=== PATIENT | female | born 1945 | race Caucasian/White ===

== ENCOUNTER 2017-02-19 09:16 | Observation (INO) | payer MEDICARE, OTHER ==
[2017-02-10 16:41] LABS: BASOPHILS 0.2 %; BASOPHILS ABSOLUTE 0.01 10/3/uL (0.0-0.16); EOSINOPHILS 1.8 %; EOSINOPHILS ABSOLUTE 0.11 10/3/uL (0.0-0.53); HEMATOCRIT 40.9 % (36.0-48.0); HEMOGLOBIN 13.7 g/dL (12.0-16.0); LYMPHOCYTES ABSOLUTE 1.62 10/3/uL (0.67-4.30); MEAN CORPUS HGB CONC 33.5 g/dL (32.0-36.0); MEAN CORPUSCULAR HEMOGLOB 28.1 pg (26.0-34.0); MEAN PLATELET VOLUME 10.9 fL (9.2-13.0); MONOCYTES 6.2 %; MONOCYTES ABSOLUTE 0.37 10/3/uL (0.21-1.20); NEUTROPHILS 64.8 %; PLATELET COUNT 262 10/3/uL (150-400); RED CELL COUNT 4.87 10/6/uL (4.0-5.6)
[2017-02-10 16:49] LABS: MANUAL DIFF NO %; RBC DISTRIBUTION WIDTH 20.1 % (12.0-16.0)
[2017-02-10 16:53] LABS: A/G RATIO 0.9 (0.7-1.9); ALBUMIN 3.4 G/DL (3.5-5.0); ALKALINE PHOSPHATASE 102 U/L (45-117); BUN (BLOOD UREA NITROGEN) 27 MG/DL (6-23); CALCIUM, SERUM 9.4 MG/DL (8.5-10.4); CHLORIDE, SERUM 101 MMOL/L (96-112); CO2 (CARBON DIOXIDE) 25 MMOL/L (24-34); CREATININE 0.94 MG/DL (0.55-1.02); GFR AFRICAN AMERICAN 72 ML/MIN (>=60); GFR NON AFRICAN AMERICAN 62 ML/MIN (>=60); GLOBULIN 3.8 G/DL (2.5-4.1); GLUCOSE, SERUM 90 MG/DL (60-99); POTASSIUM, SERUM 3.5 MMOL/L (3.5-5.3); SGOT(AST) 13 U/L (5-40); SGPT(ALT) 18 U/L (5-65); SODIUM, SERUM 135 MMOL/L (135-148); TOTAL BILIRUBIN 0.4 MG/DL (0-1.2); TOTAL PROTEIN 7.2 G/DL (6.0-8.5)
--- NOTE | ~2017-02-19 | OP ---
Record Of Operation [facility] [address] [place]. [address] NAME: DEREK THOMAS : 49 STATUS : ADM IN PAT#: [id number] AGE: 71 ADM/REG DATE : 02/19/17 MR#: [id number] REPORT SERV DATE: 02/20/17 DICTATED BY: FERNANDO TRENT DATE: 02/19/17 REPORT STATUS : Draft TRANSCRIBED BY: MODL DATE: 02/19/17 DATE OF PROCEDURE: 02/19/2017 PREOPERATIVE DIAGNOSES: 1. Hiatal hernia. 2. Gastroesophageal reflux disease. POSTOPERATIVE DIAGNOSES: 1. Type 3 hiatal hernia. 2. Gastroesophageal reflux disease. PROCEDURE: Laparoscopic repair of hiatal hernia with Stuart fundoplication. ATTENDING SURGEON: Fernando Trent M.D. CHIEF SURGEON: Morelia Bahena MD ANESTHESIA: General. ESTIMATED BLOOD LOSS: Minimal. COMPLICATIONS: None. SPECIMEN: None. DESCRIPTION OF PROCEDURE: The patient was taken to the operating room, placed on the operating table in supine position. After induction of general anesthesia, time-out procedure was performed to ensure proper procedure and patient identification. The patient was repositioned in modified lithotomy position. The patient's abdomen was then prepped and draped in the usual sterile fashion. A 10 mm skin incision was created just superior and to the left side of the patient's abdomen. A 10 mm trocar was then advanced into the abdomen using Optiview technique. Then abdomen inflated. Laparoscope was inserted. The abdomen inspected. At this point, two additional 5 mm trocars were placed along the left costal margin. One additional 10 mm trocar was placed on the medial aspect of the right costal margin and an additional 5 mm trocar was placed along the lateral aspect of the left costal margin. A liver retractor was introduced through the lateral port site and the liver retracted. The patient was noted to have a large type 3 hiatal hernia. The stomach was reduced from the chest and held in traction. The pars flaccida was then opened using a Harmonic device. Once this was opened, the right foreign was identified and cleared from adjacent tissues using the LigaSure device. Dissection was continued along the anterior aspect of the esophagus. Mediastinal attachments to the esophagus were divided using the LigaSure device. Both vagus nerves were identified and protected from harm. We then directed our attention to the left side of the stomach. The stomach was elevated. The short gastric vessels were divided using the LigaSure, and this dissection was extended up to the left foreign. Once the left foreign was adequately exposed, once again attachments to this portion of the esophagus were divided using the LigaSure as well. We then elevated the Record Of Operation [facility] [address] [place]. [address] NAME: DEREK THOMAS : 49 STATUS : ADM IN PAT#: [id number] AGE: 71 ADM/REG DATE : 02/19/17 MR#: [id number] REPORT SERV DATE: 02/20/17 DICTATED BY: FERNANDO TRENT DATE: 02/19/17 REPORT STATUS : Draft TRANSCRIBED BY: EMELYN DATE: 02/19/17 esophagus. A window was created posterior to the esophagus at the level of the foreign. A Hugoton drain was passed around the esophagus and used for traction. All attachments to the mediastinum causing any traction on the esophagus were dissected using combination of blunt dissection and the LigaSure until adequate intraabdominal esophageal length was obtained in a tension-free fashion. We then directed our attention to repair of the hiatus. The right and left foreign were reapproximated with three interrupted figure-of-8 sutures of 0 Ethibond with good tension-free reapproximation. We then proceeded with creation of the fundoplication. The fundus was passed posterior to the esophagus and advanced through. We assured there was no tension or evidence of twisting of the stomach. The apex of the fundus was identified. Now, the first suture of 0 Ethibond was placed from the apex of the fundus to the esophagus to the lateral aspect of the stomach. This suture was secured and was tension free. Two additional 0 Ethibond sutures were placed from the fundus to the adjacent stomach to create the wrap. The René drain was then removed. Once again, the hiatal repair fundoplication was examined. Hemostasis was assured. All secondary trocars were then removed under direct visualization. The periumbilical trocar was removed and the abdomen allowed to collapse. The skin incisions were reapproximated with interrupted inverted 3-0 Monocryl and sterile dressings were applied. The patient tolerated the procedure well, was taken to PACU in stable condition. DICTATED BY: Morelia Bahena MD JR/MODL Fernando Trent M.D. / [id number] CC: Fernando Trent M.D.
[~2017-02-19 09:16] MED LIST: ASAB PO; ATEN50 PO; BEN25 PO; BREO ELLIPTA INH; ELIQUIS 5 MG TAB5 MG PO; FISH-EPA1000 MG PO; HYDROCHLOROT25 MG PO; HYDROCHLOROT50 MG PO; IMDUR30 PO; LOTE10 PO; LOTE20 PO; MOBIC15 MG PO; NEXIUM20 M1 PO; NITROSTAT0.4 MG SL; NYQUIL OTC PO; P20 PO; PAX10 PO; PAX20 PO; PRAVACHOL40 MG PO; PROAIR HFA INH; PROZ10 PO; REFRESH OPH SO0.3 ML OPH; SINGULAIR1 PO; T3 PO; VICODINTAB PO
[2017-02-20] MEDS ORDERED: PCET PO (11:55)
== END 2017-02-20 12:36 | disposition home or self-care (01) ==
LOC: SDC/OF 09:16 → PACU 14:27 → 5SO 18:09
PROVIDERS: Specialist
PROC: 0BQS4ZZ (ICD-10-PCS; principal; 2017-02-19 11:15)
DX: K44.9 Diaphragmatic hernia without obstruction or gangrene (principal); K21.9 Gastro-esophageal reflux disease without esophagitis; I10 Essential (primary) hypertension; J45.909 Unspecified asthma, uncomplicated; M19.90 Unspecified osteoarthritis, unspecified site; F41.9 Anxiety disorder, unspecified; F32.9 Major depressive disorder, single episode, unspecified; Z90.49 Acquired absence of other specified parts of digestive tract; Z88.8 Allergy status to other drugs, medicaments and biological substances
CPT/HCPCS: 80053; 85025; 93005; 96372; 96374; 96376; A9270-GY; G0378; J0330; J0690; J1170; J2250; J2270; J2370; J2405; J2710; J3010